=== PATIENT | male | born 1995 ===

== ENCOUNTER 2017-02-11 13:52 | Emergency (ER) | payer OTHER ==
[2017-02-11 13:53] VITALS: BMI 22.6
[2017-02-11] MEDS ORDERED: Sodium Chloride 0.9% 1,000 ML IV STA ×2 (14:29→15:29)
[2017-02-11 14:52] LABS: BASO % 0.4 % (0.0-2.0); EOS # 0.1 K/uL (0.0-0.7); EOS % 1.2 % (0.0-4.0); HEMATOCRIT 48.2 % (35.0-51.0); LYMPH # 1.9 K/uL (1.0-4.3); LYMPH % 35.9 % (20.0-40.0); MEAN CELL VOLUME 80.7 fL (80.0-94.0); MEAN CORPUSCULAR HEMOGLOBIN 28.5 pg (27.0-31.0); MEAN CORPUSCULAR HGB CONC 35.3 g/dL (33.0-37.0); MEAN PLATELET VOLUME 8.9 fL (7.2-11.7); MONO # 0.4 K/uL (0.0-0.8); RED CELL DISTRIBUTION WIDTH 13.5 % (11.5-14.5); WHITE BLOOD COUNT 5.2 K/uL (4.8-10.8)
[2017-02-11 14:56] LABS: RBC URINE 1 /hpf (0-3); URINE BACTERIA RARE (<OCC); URINE BILIRUBIN NEGATIVE (NEGATIVE); URINE BLOOD 1+ (NEGATIVE); URINE GLUCOSE (UA) NORMAL (Normal); URINE KETONE 1+ mg/dL (NEGATIVE); URINE LEUKOCYTE ESTERASE NEG Leu/uL (Negative); URINE PROTEIN NEGATIVE (NEGATIVE); WBC URINE 2 /hpf (0-5)
[2017-02-11 15:02] LABS: CHLORIDE 102 mmol/L (98-107)
[2017-02-11 15:03] LABS: POTASSIUM 3.7 mmol/L (3.6-5.2); SODIUM 145 mmol/L (132-148)
[2017-02-11 15:05] LABS: ALB/GLOB RATIO 1.2 (1.0-2.1); ALKALINE PHOSPHATASE 69 U/L (38-126); AST/SGOT 99 U/L (17-59); BILIRUBIN,TOTAL 5.5 mg/dL (0.2-1.3); BLOOD UREA NITROGEN 8 mg/dL (9-20); CARBON DIOXIDE 28 mmol/L (22-30); GFR AFRICAN-AMERICAN > 60; TOTAL PROTEIN 8.1 g/dL (6.3-8.3)
[2017-02-11 15:06] LABS: ALT/SGPT 88 U/L (21-72); CALCIUM 9.1 mg/dl (8.6-10.4); GLUCOSE,RANDOM 92 mg/dL (75-110); URINE COLOR YELLOW (YELLOW)
--- NOTE | 2017-02-11 15:25 | C.PDOC ---
History Of Present Illness A 21 year old male presents to the emergency room with complaints of flu-like symptoms for 1 week. Patient also notes headaches, body aches, coughing, nausea , and vomiting today. Patient denies any shortness of breath, chest pain, dizziness, neck pain, any recent travel, any sick contacts, or any other complaints. Time Seen by Provider: 02/11/17 14:12 Chief Complaint (Nursing): Flu-like Symptoms History Per: Patient History/Exam Limitations: no limitations Onset/Duration Of Symptoms: Other (1 week) Current Symptoms Are (Timing): Still Present Location Of Pain: Diffuse Myalgias, Headache Sick Contacts (Context): None Associated Symptoms: Cough, Myalgias, Nausea, Vomiting Ear Symptoms: Bilateral: None Severity: Mild Recent travel outside of the [place]: No Past Medical History Reviewed: Historical Data, Nursing Documentation, Vital Signs Vital Signs: Last Vital Signs Temp 98.1 F 02/11/17 18:29 Pulse 59 L 02/11/17 18:29 Resp 20 02/11/17 18:29 BP 118/74 02/11/17 18:29 Pulse Ox 100 02/11/17 20:51 - [facility] Procedures SKIN & SUBQ INCISION NEC (02/06/15) Family History: States: Unknown Family Hx - Social History Hx Tobacco Use: No Hx Alcohol Use: Yes Hx Substance Use: No - Immunization History Hx Tetanus Toxoid Vaccination: Yes Hx Influenza Vaccination: Yes Hx Pneumococcal Vaccination: Yes Review Of Systems Except As Marked, All Systems Reviewed And Found Negative. Cardiovascular: Negative for: Chest Pain Respiratory: Positive for: Cough. Negative for: Shortness of Breath Gastrointestinal: Positive for: Nausea, Vomiting Musculoskeletal: Positive for: Other (Body aches). Negative for: Neck Pain Neurological: Positive for: Headache. Negative for: Dizziness Physical Exam - Physical Exam Appears: Well, Non-toxic Skin: Normal Color, Warm, Dry Head: Atraumatic, Normacephalic Eye(s): bilateral: Normal Inspection Ear(s): Bilateral: Normal Nose: Normal, No Discharge, No Tenderness Oral Mucosa: Moist Throat: Normal, No Erythema, No Exudate Neck: Normal ROM, Supple Cardiovascular: Rhythm Regular Respiratory: Normal Breath Sounds, No Rales, No Rhonchi, No Wheezing Gastrointestinal/Abdominal: Soft, No Tenderness, No Guarding, No Rebound Extremity: Normal ROM, No Tenderness Neurological/Psych: Oriented x3, Normal Speech ED Course And Treatment - Laboratory Results Result Diagrams: 02/11/17 14:49 02/11/17 14:49 O2 Sat by Pulse Oximetry: 100 - Radiology CXR: Interpreted by Sd CXR Interpretation: Yes: No Acute Disease - CT Scan/US Head CT Other Rad Studies (CT/US): Read By Radiologist, Radiology Report Reviewed CT/US Interpretation: PROCEDURE: CT HEAD WITHOUT CONTRAST. HISTORY: headache. COMPARISON: None available. TECHNIQUE: Axial computed tomography images were obtained through the head/brain without intravenous contrast. Radiation dose: Total exam DLP = 834.56 mGy-cm. FINDINGS: HEMORRHAGE: No intracranial hemorrhage. BRAIN: No mass effect or edema. No atrophy or chronic microvascular ischemic changes. VENTRICLES: Unremarkable. No hydrocephalus. CALVARIUM: Unremarkable. PARANASAL SINUSES: Chronic pansinusitis. Possible superimposed acute left maxillary sinusitis with air- fluid level. Questionable air-fluid level also in left-sided sphenoid sinus. MASTOID AIR CELLS: Unremarkable as visualized. No inflammatory changes. OTHER FINDINGS: None. IMPRESSION: No intracranial mass, hemorrhage or evidence of acute infarct. Chronic pansinusitis. Possible superimposed chronic left maxillary and sphenoid sinusitis. Please correlate clinically. Progress Note: CT Head, CXR, & Labs ordered. CT Head and CXR were negative. On reassessment, patient is resting comfortably, is tolerating PO, and pain has improved. Clinical signs and symptoms are not suggestive of sepsis, meningitis, UTI, pneumonia, intra-abdominal pathology, or cellulitis. Patient will be discharged home, and instructed to follow up with physician/clinic in 1-2 days without fail. Disposition - Disposition Referrals: Brad Hirsch MD [Staff Provider] - Disposition: HOME/ ROUTINE Disposition Time: 17:46 Condition: STABLE Additional Instructions: Follow up with PMD and ENT specialist within 1-2 days. Return to ED if feel worse. Prescriptions: Amoxicillin/Clavulanate [Augmentin 875 MG-125 MG] 1 tab PO BID #20 tab Fluticasone Propionate [Flonase] 1 spr NS BID #1 spr Ibuprofen [Motrin Tab] 400 mg PO Q8 #30 tab Ondansetron ODT [Zofran ODT] 4 mg PO .Q4-6H PRN #20 odt PRN Reason: Nausea/Vomiting Instructions: Sinusitis (ED) Print Language: STATELESS - Clinical Impression Clinical Impression: Sinusitis - Scribe Statement The provider has reviewed the documentation as recorded by the Justo Ennis Provider Justo Attestation: All medical record entries made by the Rodolfoibcandelaria were at my direction and personally dictated by me. I have reviewed the chart and agree that the record accurately reflects my personal performance of the history, physical exam, medical decision making, and the department course for this patient. I have also personally directed, reviewed, and agree with the discharge instructions and disposition.
[2017-02-11] MEDS ORDERED: Sodium Chloride 0.9% 1,000 ML ONE (15:37)
--- NOTE | 2017-02-11 16:56 | RAD ---
HISTORY: fever/cough/vomiting COMPARISON: No prior. TECHNIQUE: Chest PA and lateral FINDINGS: LUNGS: No active pulmonary disease. PLEURA: No significant pleural effusion identified. No pneumothorax apparent. CARDIOVASCULAR: Normal. OSSEOUS STRUCTURES: No significant abnormalities. VISUALIZED UPPER ABDOMEN: Normal. OTHER FINDINGS: None. IMPRESSION: No active disease.
[2017-02-11 18:30] VITALS: BP 118/74; PULSE 59; RESP 20; TEMP 98.1
[2017-02-11 20:51] VITALS: O2SAT 100
== END 2017-02-11 18:30 | disposition home or self-care (01) ==
LOC: C.ER 13:52
DX: J32.9 Chronic sinusitis, unspecified (principal)
CPT/HCPCS: 70450; 71020; 80053; 81001; 83690; 85025; 87040; 87086; 87804; 96361; 96374; 99285; J2405; J7040